=== PATIENT | female | born 1970 | race Caucasian/White ===

== ENCOUNTER → 2016-06-21 16:55 | Outpatient (CLI) | payer SELFPAY | END | disposition home or self-care (01) | LOC: D.MAMMO 10:30 | DX: R92.8 Other abnormal and inconclusive findings on diagnostic imaging of breast (principal) ==

== ENCOUNTER 2018-08-19 12:45 | Outpatient (CLI) | payer SELFPAY | END 2018-08-19 13:30 | disposition home or self-care (01) | LOC: D.MAMMO 12:45 | PROVIDERS: ATTEND Clinical Nurse Specialist Adult Health | DX: Z12.31 Encounter for screening mammogram for malignant neoplasm of breast (principal) ==

== ENCOUNTER 2019-03-17 08:00 | Outpatient (CLI) | payer MEDICAID ==
[2019-03-26] MEDS ORDERED: TOPAMAX100 MG PO (14:30)
[2019-03-26] MEDS ORDERED: EPITOL200 MG PO (14:31)
[2019-03-26] MEDS ORDERED: CELEXA20 MG PO (14:31)
[2019-03-26] MEDS ORDERED: EZFE 200200 MG PO (14:32)
[2019-03-26] MEDS ORDERED: FEXOFENADINE H180 MG PO (14:32)
[2019-03-27 08:21] VITALS: BMI 30.6
== END 2019-03-17 23:59 | disposition home or self-care (01) ==
LOC: D.MAMMO 08:00
PROVIDERS: ATTEND Nurse Practitioner
DX: N63.41 Unspecified lump in right breast, subareolar (principal)

== ENCOUNTER 2019-03-27 06:54 | Day surgery (SDC) | payer MEDICAID ==
[~2019-03-27] VITALS: Ht 170.2 cm; Wt 88.5 kg
[~2019-03-27 06:54] MED LIST: CELEXA20 MG PO; EPITOL200 MG PO; EZFE 200200 MG PO; FEXOFENADINE H180 MG PO; TOPAMAX100 MG PO
[2019-03-27 07:06] LABS: BASOPHILS 0.6 % (0-2); EOSINOPHILS 1.9 % (0-7); HEMATOCRIT 41.9 % (36.0-48.0); HEMOGLOBIN 13.7 g/dL (12-16); IMMATURE GRANULOCYTES 0.3 % (0-5); MCH 30.7 pg (26.0-34.0); MCHC 32.7 g/dL (31.0-37.0); MCV 93.9 fL (80.0-100.0); MEAN PLATELET VOLUME 9.3 fL (7.4-10.4); NEUTROPHILS 61.2 % (40-80); PLATELET COUNT 271 10x3/uL (130-400); RBC 4.46 10x6/uL (4.00-5.40); RDW 12.8 % (11.5-14.5); WBC 6.9 10x3/uL (4.8-10.8)
[2019-03-27 08:21] VITALS: BP 95/63; Ht 170.2 cm; Wt 88.5 kg
--- NOTE | 2019-03-27 10:54 | NUR ---
PREPPED LEFT ARM FROM TOURNIQUET TO FINGERS CIRCUMFERENTIALLY.
[2019-03-27] MEDS ORDERED: SULFAMETHOXAZOL1 TA2 PO (11:47)
[2019-03-27] MEDS ORDERED: PERCOCET 5-3251 TAB PO (11:48)
--- NOTE | 2019-03-27 13:33 | OP ---
PATIENT NAME: DONNELL SUTTON MEDICAL RECORD: [id number] :74 LOCATION:[facility] ADMISSION DATE: SURGEON: MANDI GARDUNO DO DATE OF OPERATION: 03/27/2019 PROCEDURE PERFORMED: Left wrist scapholunate ligament reconstruction. PREOPERATIVE DIAGNOSIS: Left wrist scapholunate ligament rupture. POSTOPERATIVE DIAGNOSIS: Left wrist scapholunate ligament rupture. INDICATIONS: Ms. Sutton is a 48-year-old female who fell in August and had x-rays done, which did not show any scapholunate widening. She had pain for quite some time. 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 She came to see me and noticed on PA view that she had widening of the scapholunate distance indicating ligament rupture. An MRI was done, which showed the same. The ligament was not even present. I informed that this was chronic, but may not have happened right away that with the use it may have ruptured. We would try a ligament repair, a reconstruction rather. Knowing that it may not be her last surgery in her wrist that it may cause further arthritis. She did not have any arthritis whatsoever on x-ray or MRI and no collapse of the capitate. The patient was aware of the risks including infection, fracture, damage to nerves and vessels, need for further surgery, prolonged wearing of the splint and having a pain also on her right arm. She was informed of the risks and knows that she may need another surgery and loss of motion and good strength in the left hand and she signed the consent as well as damage to nerves and vessels. SURGEON: Mandi Garduno DO DESCRIPTION OF PROCEDURE: The patient received a block by anesthesia in the preoperative area, was taken to the operative suite, laid in the supine position, given general anesthetic and 900 mg clindamycin and a LMA sedation was done. An LMA was placed. Then, the left upper extremity was prepped and draped in a sterile fashion. Timeout was performed. Everyone was in agreeance with the correct side, site, patient and procedure. An Esmarch was used to exsanguinate the left upper extremity, tourniquet was inflated to 250 mmHg and it was up for 45 minutes. The incision was then made over the fourth dorsal compartment. Careful dissection was made down to the retinaculum where it had been split and then a dissection was made on the wrist capsule. The wrist was then opened and encountered the capitate and the scapholunate had widened significantly since last x-ray. K-wires were then put in the scaphoid and lunate and reduced. The scaphoid had begun to flex and it was reduced and then the K-wires were placed in the scaphoid at the more proximal pole and then in the middle of the lunate and the more distal pole of the scaphoid and then these were overdrilled. We then used the anchors from [employer] and placed an internal brace in, first in the scaphoid and to the proximal fold and to the lunate, and then up into the distal pole of the scaphoid holding the reduction with the other two K-wires, were then put in for reduction technique. Then, once this is adequate and I had really a nice reduction on x-ray. A pin was placed through the scaphoid into the capitate holding it into place. The tourniquet was then let down, any bleeding was coagulated with a bipolar. The capsule was then closed with 3-0 Vicryl in a [id number] fashion in simple fashion. Then, the extensor retinaculum was also repaired with 3-0 Vicryl in a horizontal OPERATIVE REPORT [id number] DONNELL SUTTON fashion. The skin was then closed with 3-0 Vicryl inverted interrupted fashion, 4-0 Monocryl ran on the skin. Steri-Strips, Adaptic, 4 x 4's were then placed and an Adaptic was placed around the pin, and then a thumb spica splint was placed after being wrapped with cast padding. She was then awakened and taken to recovery in stable condition. Blood loss is approximately 20 mL. COMPLICATIONS: None. TRANSINT:[id number] Voice Confirmation ID: [id number] DOCUMENT ID: [id number] MANDI GARDUNO DO at 1333 CC: [id number] DICTATION DATE: 03/27/19 1157 FILM DEVELOPER: 03/27/19 [id number] [place] [address]
== END 2019-03-27 13:27 | disposition home or self-care (01) ==
LOC: D.OPS 06:54 → D.PAN 08:30 → D.OPS 08:30 → D.PAN 03-31 07:00 → D.OPS 03-31 07:00
PROVIDERS: ATTEND Orthopaedic Surgery
DX: S63.392A Traumatic rupture of other ligament of left wrist, initial encounter (principal); X58.XXXA Exposure to other specified factors, initial encounter

== ENCOUNTER → 2019-12-01 09:57 | Outpatient (CLI) | payer OTHER ==
[2019-03-27 08:21] VITALS: BMI 30.6
[~2019-12-01 09:57] MED LIST changes: +PERCOCET 5-3251 TAB PO; +SULFAMETHOXAZOL1 TA2 PO
== END | disposition home or self-care (01) ==
LOC: D.MRI 09:57
PROVIDERS: ATTEND Nurse Practitioner
DX: S63.392D Traumatic rupture of other ligament of left wrist, subsequent encounter (principal)

== ENCOUNTER 2020-01-22 07:00 | Day surgery (SDC) | payer OTHER ==
--- NOTE | 2020-01-20 10:17 | NUR ---
pans vitals pox 99% p 72 bp 128/80
[2020-01-20 10:22] LABS: HEMATOCRIT 39.6 % (36.0-48.0); MCH 30.2 pg (26.0-34.0); MCHC 32.8 g/dL (31.0-37.0); MCV 92.1 fL (80.0-100.0); MEAN PLATELET VOLUME 9.3 fL (7.4-10.4); RBC 4.3 10x6/uL (4.00-5.40); RDW 13.1 % (11.5-14.5); WBC 5.3 10x3/uL (4.8-10.8)
[~2020-01-22] VITALS: Ht 170.2 cm; Wt 61.2 kg
[~2020-01-22 07:00] MED LIST changes: +IBUPROFEN800 MG PO; +LIPITOR20 MG PO
[2020-01-22 07:41] VITALS: BP 112/70; Ht 170.2 cm; Wt 61.2 kg
--- NOTE | 2020-01-22 14:41 | NUR ---
PT RE-BLOCKED WITH PAIN DECREASED TO 0/10. TOLERATED WELL. IV D/C'D WITH CANNULA INTACT, PRESSURE APPLIED, AND DRSG PLACED. DISCHARGE INSTRUCTIONS GIVEN AND PT VERBALIZE AN UNDERSTANDING. DISCHARGED IN STABLE CONDITION AND W/O C/O
--- NOTE | 2020-01-25 08:49 | OP ---
PATIENT NAME: DONNELL SUTTON MEDICAL RECORD: [id number] :74 LOCATION:[facility] ADMISSION DATE: SURGEON: ÁNGEL GARDUNO DO DATE OF OPERATION: 01/22/2020 PROCEDURE PERFORMED: Left wrist 4-corner fusion and endoscopic carpal tunnel release. PREOPERATIVE DIAGNOSES: Left carpal tunnel syndrome and SLAC wrist. POSTOPERATIVE DIAGNOSES: Left carpal tunnel syndrome and SLAC wrist. INDICATIONS: Ms. Sutton is a 49-year-old female who had an SL ligament reconstruction almost a year ago. I believe it did well initially postop and then failed and her capitate began to collapse and had severe arthritis in the scaphoradial joint. I informed her that we would be able to try 4-corner fusion, but that she would not have much motion of her wrist afterwards. She was okay with that and she is aware of the risks including infection, bleeding, nonunion, malunion, continued pain, and loss of motion of the wrist as well as damage to nerves and vessels in the area and she signed the consent. SURGEON: Ángel Garduno DO DESCRIPTION OF PROCEDURE: The patient was given a block by anesthesia in the preoperative area, taken to the operative suite, laid in supine position, given general anesthetic, 2 grams Ancef. The left upper extremity was then prepped and draped in sterile fashion. A time-out was performed and everyone was in agreeance with the correct side, site, patient, and procedure. She had an LMA placed. The left upper extremity was exsanguinated with an Esmarch, tourniquet was inflated to 250 mmHg, was up for 107 minutes. We first began by doing the endoscopic carpal tunnel. I made an incision centered over the palmaris longus tendon. Careful dissection made down with 2 Ragnells to the median nerve, released the fascia from distal to proximal. I then entered the carpal tunnel with the dilators. I then brought in the sheath and the camera. I brought in the rasp and the probe and cleaned off the transverse carpal ligament. I then brought in the blade and raised it up and transected the transcarpal ligament and fat. I then herniated down into the carpal tunnel. I then used the Ragnell and scissors to ensure there were no remaining fibers, the transverse carpal ligament has a good release. We then closed it with 5-0 Monocryl in interrupted fashion with Mrs. Kiko Truong, certified surgical first aid nurse, doing this and then Dermabond on the incision. I then addressed the dorsal wrist for the 4-corner fusion and went through the old incision between the third and fourth compartments and made careful dissection down to the capsule, made a ligament sparing approach, exposed the capitate, triquetrum, hamate and the lunate had severely displaced volarly and then once I noticed that I freed it up and I got it back to the normal position and put a K-wire through the radius into the lunate, holding it into place. I then denuded the cartilage in between the 4 bones and used the reamer to ream over the 4 bones after placing bone graft, demineralized bone matrix into the spaces between them. I then put screws into the lunate first, then capitate and the hamate and then the triquetrum. I then got 2 more screws in the capitate as well as the lunate, but I could not get another 2 screws in the other 2 bones. This was through the TriMed plate after reaming over the bones. Then, I checked the lateral and saw that the lunate had fallen again volarly, but it was stable and was not moving as the screws caught it well and then I decided to leave it where it was. Once that was in adequate OPERATIVE REPORT [id number] DONNELL SUTTON position, I irrigated and let the tourniquet down and then closed the capsule with 2-0 Vicryl in a [id number] and simple fashion and then Kiko Truong, certified surgical first aid nurse, closed the skin with 3-0 Vicryl in interrupted fashion, 5-0 Monocryl running on the skin and then Prineo glue on the dorsal incision. I then dressed it with Adaptic, 4 x 4's, cast padding and put a volar splint on and wrapped it with an Javier wrap. She was then awakened and taken to recovery in stable condition. BLOOD LOSS: Approximately 50 mL. COMPLICATIONS: None. NTS:[id number] Voice Confirmation ID: [id number] DOCUMENT ID: [id number] ÁNGEL GARDUNO DO at 0849 CC: [id number] DICTATION DATE: 01/22/20 1052 FABRICATION SUPERVISOR: 01/22/20 2233 DEP SDC 01/22/20 [facility] [address] [facility] [place] [address]
== END 2020-01-22 14:20 | disposition home or self-care (01) ==
LOC: D.PAN 07:00 → D.OPS 07:00
PROVIDERS: Anesthesiology; ATTEND Orthopaedic Surgery
DX: G56.02 Carpal tunnel syndrome, left upper limb (principal); S63.392D Traumatic rupture of other ligament of left wrist, subsequent encounter; M25.532 Pain in left wrist